=== PATIENT | female | born 1995 | race Hispanic/Latino ===

== ENCOUNTER 2017-01-13 08:49 | Emergency (ER) | payer SELFPAY, OTHER | END 2017-01-13 09:22 | disposition home or self-care (01) | LOC: ERS 08:49 | DX: L29.9 Pruritus, unspecified (principal); S40.812A Abrasion of left upper arm, initial encounter; S40.811A Abrasion of right upper arm, initial encounter; X58.XXXA Exposure to other specified factors, initial encounter | CPT/HCPCS: 99282 ==

== ENCOUNTER 2018-12-15 18:09 | Emergency (ER) | payer OTHER, SELFPAY ==
[2018-12-15] MEDS ORDERED: Dexamethasone 10 MG/ML VIAL ONE (18:52)
[2018-12-15] MEDS ORDERED: Acetaminophen 500 MG TAB ONE (18:53)
== END 2018-12-15 19:00 | disposition home or self-care (01) ==
LOC: ERS 18:09
DX: H92.02 Otalgia, left ear (principal)
CPT/HCPCS: 99283; J1100